=== PATIENT | male | born 1980 | race Caucasian/White ===

== ENCOUNTER 2021-02-24 22:11 | Emergency (ER) | payer MEDICARE ==
[~2021-02-24 22:11] MED LIST: PREDNISONE50 MG PO
[2021-02-25 01:44] LABS: BASOPHIL 0.3 % (0-2); EOSINOPHIL 1.2 % (0-5); HGB 13.8 g/dl (13.2-18.0); LYMPHOCYTE 14.2 % (15-48); MCH 31.9 pg (25.0-31.0); MCHC 33.7 g/dL (32.0-36.0); MCV 94.9 fL (78.0-100.0); MONOCYTE 8.5 % (0-12); MPV 8.6 fL (6.0-9.5); NEUTROPHIL 75.1 % (41-80); NRBC 0; PLT 309 K/uL (150-400); RBC 4.32 M/uL (4.70-6.00); RDW 12.1 % (11.5-14.0)
[2021-02-25 02:03] LABS: ALBUMIN 3.2 g/dL (3.4-5.0); BILIRUBIN - TOTAL 0.6 mg/dL (0.2-1.0); CREATININE 0.53 mg/dL (0.67-1.17); GLOBULIN (CALCULATION) 4.7 g/dL; POTASSIUM 3.5 mmol/L (3.5-5.1); TOTAL PROTEIN 7.9 g/dL (6.4-8.2)
[2021-02-25 02:13] LABS: LACTIC ACID 0.6 mmol/L (0.4-1.9)
[2021-02-25 02:16] LABS: INFLUENZA A NAA NEGATIVE (NEGATIVE)
[2021-02-25 02:24] LABS: CORONAVIRUS 2019 SARS-COV-2 POSITIVE (NEGATIVE)
[2021-02-25] MEDS ORDERED: AUGMENTIN250 MG/5 M PO (04:33)
[2021-02-25] MEDS ORDERED: IBUPROFEN100 MG/51 PO (04:33)
[2021-02-25] MEDS ORDERED: ONDANSETRON ODT4 MG PO (04:33)
[2021-02-25] MEDS ORDERED: ACETAMINOP325 MG/101 PO (04:33)
[2021-02-25] MEDS ORDERED: CLINDAMYCI75 MG/5 M1 PO (04:39)
== END 2021-02-25 05:02 | disposition home or self-care (01) ==
LOC: FER 22:11
PROVIDERS: Emergency Medicine
DX: U07.1 COVID-19 (principal); J02.0 Streptococcal pharyngitis; F17.200 Nicotine dependence, unspecified, uncomplicated
CPT/HCPCS: 36415; 70491; 80053; 83605; 85025; 87040; J1885; J2930; J7030; Q9967; U0002